=== PATIENT | male | born 1960 | race Two or more races ===

== ENCOUNTER 2018-10-15 09:18 | Inpatient (IN) | payer OTHER, MEDICAID ==
[~2018-10-15] VITALS: Ht 175.3 cm; Wt 69.9 kg
[2018-10-15] MEDS ORDERED: ONDANSETRON HCL/PF 4 MG/2 ML VIAL IVP ONE (09:30)
[2018-10-15] MEDS ORDERED: IV NS 0.9% 1,000 ML BAG IV ONE (09:30)
[2018-10-15] MEDS ORDERED: ONDANSETRON HCL/PF 4 MG/2 ML VIAL ONE (09:38)
[2018-10-15 09:41] LABS: BASOPHILS % (AUTO) 0.6 % (0.0-2.0); EOSINOPHILS % (AUTO) 0.7 % (0.0-6.0); HEMATOCRIT 44 % (39-51); LYMPHOCYTES # (AUTO) 1.2 /CMM (0.8-4.8); LYMPHOCYTES % (AUTO) 17.9 % (20.0-44.0); MEAN CORPUSCULAR HGB CONC 34 g/dl (31.0-36.0); MEAN CORPUSCULAR VOLUME 88 fL (80-96); MONOCYTES # (AUTO) 0.5 /CMM (0.1-1.30); MONOCYTES % (AUTO) 7.5 % (2.0-12.0); NEUTROPHILS # (AUTO) 4.7 /CMM (1.8-8.9); NEUTROPHILS % (AUTO) 73.3 % (43.0-81.0); PLATELET COUNT (AUTO) 251 /CMM (150-450); RED BLOOD CELL COUNT(AUTO) 4.99 MIL/uL (4.5-6.0); WHITE BLOOD COUNT (AUTO) 6.5 K/uL (4.3-11.0)
[2018-10-15 09:42] LABS: APPEARANCE,URINE Clear (CLEAR); BILIRUBIN,URINE Negative (NEGATIVE); BLOOD, URINE Negative Ery/uL (NEGATIVE); COLOR,URINE Yellow (YELLOW); KETONES,URINE Negative (NEGATIVE); LEUKOCYTE ESTERASE ,URINE Negative (NEGATIVE); NITRITE, URINE Negative (NEGATIVE); PH,URINE 7.5 (5.0-8.0); PROTEIN,URINE Negative (NEGATIVE); UGLUCOSE Negative (NEGATIVE)
--- NOTE | 2018-10-15 09:45 | NUR ---
patient came in via paramedics, c/o nausea vomiting since this morning. On room air, breathing evenly and unlabored. kept comfortable, will continue to monitor accordingly.
[2018-10-15 09:54] LABS: BACTERIA,URINE Rare /HPF (None Seen); RBC,URINE 0-3 /HPF (0-2); SQUAMOUS EPITHELIAL CELL,UR Few /HPF (None Seen)
[2018-10-15 09:57] LABS: ALANINE AMINOTRANSFERASE 41 U/L (12-78); ALBUMIN 4.4 g/dL (3.4-5.0); ALKALINE PHOSPHATASE 55 U/L (46-116); ASPARTATE AMINOTRANSFERASE 22 U/L (15-37); BILIRUBIN,DIRECT 0.2 mg/dL (0.0-0.2); BILIRUBIN,TOTAL 0.5 mg/dL (0.2-1.0); CALCIUM, SERUM 9.4 mg/dL (8.5-10.1); CARBON DIOXIDE 30 mmol/L (21-32); CHLORIDE 97 mmol/L (98-107); CREATININE 1.1 mg/dL (0.6-1.3); GLUCOSE 157 mg/dL (74-106); LIPASE 42 U/L (73-393); POTASSIUM 2.9 mmol/L (3.5-5.1); SODIUM SERUM 139 mmol/L (136-145); TOTAL PROTEIN, SERUM 7.9 g/dL (6.4-8.2); UREA NITROGEN, BLOOD 4 mg/dL (7-18)
[2018-10-15] MEDS ORDERED: POTASSIUM CHLORIDE 20 MEQ TAB.PRT.SR PO ONE ×2 (10:15→10:30)
--- NOTE | 2018-10-15 11:35 | NUR ---
Report given to Nel GANNON for leandro.
--- NOTE | 2018-10-15 12:25 | NUR ---
Patient refused transfer to [facility] facility
--- NOTE | 2018-10-15 12:30 | NUR ---
Transferred patient via wheelchair accompanied by RN and emt in no apparent distress noted. Nel RN at bedside to assume care.
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
--- NOTE | 2018-10-15 13:30 | NUR ---
REPORTS ABDOMINAL PAIN RATED A 7/10, DOES NOT RADIATE ANYWHERE, THE PAIN COMES AND GOES, PT STATES THE PAIN IS ALLEVIATED AFTER VOMITING, DESCRIBES THE PAIN DULL. PT REPORTS HE CONTINUES TO FEEL NAUSEA AND HAS VOMITED IN THE BATHROOM 4 TIMES, BILE COLORED VOMIT.
--- NOTE | 2018-10-15 13:35 | NUR ---
CALLED [facility], SPOKE WITH DR. WOODS REQUESTING A ZOFRAN ORDER. RECEIVED TELEPHONE ORDER FOR ZOFRAN 4MG IV ONCE. DR WOODS SAID HE WOULD PUT IN THE ADMITTING ORDERS SHORTLY.
--- NOTE | 2018-10-15 13:40 | NUR ---
PHOTO TAKEN OF BRUISE, PLACED IN PATIENT'S CHART
[2018-10-15] MEDS ORDERED: ONDANSETRON HCL/PF 4 MG/2 ML VIAL IV PRN (14:00)
[2018-10-15] MEDS ORDERED: ONDANSETRON HCL/PF 4 MG/2 ML VIAL IVP PRN (15:00)
[2018-10-15] MEDS ORDERED: Z GUARD REMEDY 2 OZ OINT TP PRN (15:00)
[2018-10-15] MEDS ORDERED: ACETAMINOPHEN 325 MG TABLET PO PRN (15:00)
[2018-10-15] MEDS ORDERED: MORPHINE SULFATE INJ 4 MG/ML DISP.SYRIN IV PRN (15:00)
--- NOTE | 2018-10-15 15:30 | NUR ---
OBSERVED PT PACING IN ROOM, UNABLE TO SIT STILL. REPORTS HIGH ANXIETY LEVELS. DR WOOSD NOTIFIED.
[2018-10-15] MEDS: FAMOTIDINE (20 MG) 20 MG TABLET PO SCH ×2 (15:40→21:02)
[2018-10-15] MEDS: IV NS 0.9% 1,000 ML IV PRN (15:53)
[2018-10-15 16:00] VITALS: BP 145/60
[2018-10-15] MEDS: LORAZEPAM 0.5 MG TABLET PO PRN (16:11)
[2018-10-15] MEDS: SUCRALFATE 1 G/10 ML UDC PO SCH (17:47)
--- NOTE | 2018-10-15 19:03 | NUR ---
MS RN CLOSING NOTE PT ALERT AND ORIENTED X 4 IN BED, ANXIOUS, REPORTS HIS NAUSEA HAS IMPROVED, IS NOT VOMITING ANY MORE, REPORTS HIS ABDOMINAL PAIN HAS DECREASED TO 4/10. PT ON ROOM AIR, TOLERATING WELL, RESPIRATIONS EASY, UNLABORED, NO SIGNS OF RESPIRATORY DISTRESS NOTED. PROVIDED SAFETY AND COMFORT TO PATIENT THROUGHOUT SHIFT. BED IN LOW POSITION, LOCKED, CALL LIGHT WITHIN REACH. RIGHT AC G18 UNFISNG NS 125ML/HR. SITE IS PATENT. WILL ENDORSE TO NOC SHIFT NURSE.
--- NOTE | 2018-10-15 19:15 | NUR ---
PT REMOVED HIS IV FROM RIGHT AC.
--- NOTE | 2018-10-15 19:40 | NUR ---
MS RN NOTE: PATIENT RESTING IN BED, NO ACUTE DISTRESS NOTED. BREATHING EVEN AND UNLABORED, NO SOB NOTED. IV LINE PULLED OUT, NO BLEEDING NOTED. WILL TRY TO START A NEW IV LATER. NO NAUSEA/VOMITING AT THIS TIME. BED LOCK AND IN LOWEST POSITION, CALL LIGHT IN REACH. WILL CONTINUE TO MONITOR.
[2018-10-15 20:00] VITALS: BP 159/88
[2018-10-15] MEDS: ZOLPIDEM TARTRATE 5 MG TABLET PO PRN (21:02)
--- NOTE | 2018-10-15 21:30 | NUR ---
MS RN NOTE: NEW IV STARTED TO LFA #22 WITH GOOD BLOOD RETURN, IV FLUIDS RECONNECTED. PATIENT REQUEST FOR SLEEPING MEDICATIONS. AMBIEN 5MG 1 TAB ORAL GIVEN PER MD ORDER. WILL CONTINUE TO MONITOR.
[2018-10-16] MEDS: LORAZEPAM 0.5 MG TABLET PO PRN (01:30)
--- NOTE | 2018-10-16 01:45 | NUR ---
MS RN NOTE: PATIENT REQUESTING FOR ANXIETY MEDICATION, ATIVAN 0.5MG 1 TAB ORAL GIVEN PER MD ORDER, WILL CONTINUE TO MONITOR.
[2018-10-16 04:00] VITALS: BP 133/84
[2018-10-16] MEDS: IV NS 0.9% 1,000 ML IV PRN ×2 (04:22→16:06)
--- NOTE | 2018-10-16 06:10 | NUR ---
MS RN NOTE: PATIENT RESTING IN BED, NO ACUTE DISTRESS NOTED. BREATHING EVEN AND UNLABORED, NO SOB NOTED. IV TO LFA IN PLACE, INFUSING NS AT 125ML/HR. NO NAUSEA/VOMITING AT THIS TIME. BED LOCK AND IN LOWEST POSITION, CALL LIGHT IN REACH. WILL ENDORSE TO DAY NURSE TO CONTINUE WITH PLAN OF CARE.
[2018-10-16 06:35] LABS: BASOPHILS % (AUTO) 0.8 % (0.0-2.0); EOSINOPHILS % (AUTO) 0.9 % (0.0-6.0); HEMATOCRIT 40 % (39-51); HEMOGLOBIN 13.7 g/dL (13.5-17.5); LYMPHOCYTES # (AUTO) 1.6 /CMM (0.8-4.8); MEAN CORPUSCULAR HGB CONC 34 g/dl (31.0-36.0); MEAN CORPUSCULAR VOLUME 87 fL (80-96); MONOCYTES # (AUTO) 0.5 /CMM (0.1-1.30); MONOCYTES % (AUTO) 8.5 % (2.0-12.0); NEUTROPHILS # (AUTO) 3.3 /CMM (1.8-8.9); NEUTROPHILS % (AUTO) 60.8 % (43.0-81.0); PLATELET COUNT (AUTO) 230 /CMM (150-450); WHITE BLOOD COUNT (AUTO) 5.4 K/uL (4.3-11.0)
[2018-10-16 06:36] LABS: ALBUMIN 3.7 g/dL (3.4-5.0); BILIRUBIN,TOTAL 0.7 mg/dL (0.2-1.0); CREATININE 0.8 mg/dL (0.6-1.3); MAGNESIUM 1.9 mg/dL (1.8-2.4); PHOSPHORUS 3.7 mg/dL (2.5-4.9); POTASSIUM 3.7 mmol/L (3.5-5.1); TOTAL PROTEIN, SERUM 6.8 g/dL (6.4-8.2)
[2018-10-16] MEDS: SUCRALFATE 1 G/10 ML UDC PO SCH ×3 (06:36→16:42)
[2018-10-16 06:54] LABS: THYROID STIMULATING HORMONE 0.657 uIU/mL (0.358-3.74)
[2018-10-16 08:00] VITALS: BP_SYST 121; BP_SYST 128; BP_DIAS 72; BP_DIAS 81
--- NOTE | 2018-10-16 08:00 | NUR ---
MS1/RN AM SHIFT INITIAL NOTES RECEIVED PT AWAKE SITTING IN BED, PT A/O X 4, DENIES ANY SYMPTOMS AT THIS TIME. NO ACUTE CHANGE OF CONDITION NOTED. ON ROOM AIR SATURATING @ 97%, RESPIRATIONS EVEN & UNLABORED. WITH ON GOING IV INFUSION OF NS @ 125CC/HR, IV SITE PATENT WITH NO S/S OF INFECTION. SCHEDULED AM MEDS TO BE GIVEN. CL WITHIN REACHED AND SAFETY MAINTAINED. ON GOING MONITORING.
[2018-10-16] MEDS ORDERED: GLIP10TA21 PO (08:42)
[2018-10-16] MEDS ORDERED: TRAM50TA2 PO (08:42)
[2018-10-16] MEDS ORDERED: LANS30CA62 PO (08:42)
[2018-10-16] MEDS ORDERED: METO-295 PO (08:42)
[2018-10-16] MEDS ORDERED: LORA0.5T PO (08:42)
[2018-10-16] MEDS ORDERED: SITA1TAB6 PO (08:42)
[2018-10-16] MEDS ORDERED: ONDA4TAB5 PO (08:42)
[2018-10-16] MEDS: FAMOTIDINE (20 MG) 20 MG TABLET PO SCH (08:59)
[2018-10-16] MEDS ORDERED: MENTHOL/CETYLPYRD (CEPACOL) 1 LOZ LOZENGE PO PRN (10:00)
--- NOTE | 2018-10-16 10:00 | NUR ---
MS1/RN CONSENT - NM GASTRIC STUDY CONSENT OBTAINED FROM PATIENT FOR THE GASTRIC STUDY. REEL STRIPPER HAS SPOKEN TO PT REGARDING THE PROCEDURE AND PT VERBALIZED UNDERSTANDING. PT PLACED ON NPO FOR THE SAID STUDY.
[2018-10-16] MEDS ORDERED: MORPHINE SULFATE INJ 4 MG/ML DISP.SYRIN IV PRN (11:00)
[2018-10-16] MEDS: NEXIUM 40 MG VIAL IV SCH ×2 (11:19→16:42)
--- NOTE | 2018-10-16 12:01 | NUR ---
MS1/RN OFF - GASTRIC STUDY PT LEFT MS1 UNIT VIA WHEELCHAIR IN STABLE CONDITION FOR GASTRIC STUDY.
--- NOTE | 2018-10-16 13:59 | NUR ---
MS1/RN BACK FROM GASTRIC STUDY PT RETURNED TO MS1 UNIT AFTER GASTRIC STUDY, CARE RESUMES.
[2018-10-16] MEDS: METOCLOPRAMIDE HCL 10 MG/2 ML VIAL IV SCH ×2 (14:09→20:47)
[2018-10-16 16:00] VITALS: BP 133/68
--- NOTE | 2018-10-16 19:30 | NUR ---
MS1/RN AM SHIFT END NOTES ALL NEEDS MET. NO ACUTE CHANGE OF CONDITION NOTED DURING THE SHIFT. WITH ON GOING IV INFUSION OF NS @ 75CC/HR, IV SITE PATENT WITH NO S/S OF INFECTION. PT ENDORSED TO PM NURSE TO CONTINUE CARE.
--- NOTE | 2018-10-16 19:30 | NUR ---
MS1/RN AM SHIFT INITIAL NOTES RECEIVED PATIENT IN BED AWAKE, A/O X4, DENIES ANY PAIN AT THIS TIME. ON ROOM AIR TOLERATING WELL. RESPIRATIONS EVEN & UNLABORED. IV SITE PATENT WITH NO S/S OF INFILTRATION, WITH ON GOING IV INFUSION OF NS @ 75CC/HR, ALL SAFETY MEASURES ON, BED LOCKED/LOW. CALL LIGHT WITHIN REACH. WILL CONTINUE MONITORING THE PATIENT. Addendum: 10/16/18 at 2021 by ALAINA ZUÑIGA RN MEANT TO SAY "MS RN INITIAL NOTES".
[2018-10-16 20:00] VITALS: BP 125/79
[2018-10-16] MEDS: ZOLPIDEM TARTRATE 5 MG TABLET PO PRN (20:43)
[2018-10-17] MEDS: LORAZEPAM 0.5 MG TABLET PO PRN (01:05)
[2018-10-17] MEDS: METOCLOPRAMIDE HCL 10 MG/2 ML VIAL IV SCH ×2 (02:09→08:22)
[2018-10-17 04:00] VITALS: BP 120/75
[2018-10-17 06:51] LABS: BASOPHILS % (AUTO) 0.7 % (0.0-2.0); EOSINOPHILS % (AUTO) 0.6 % (0.0-6.0); HEMATOCRIT 38 % (39-51); HEMOGLOBIN 13.2 g/dL (13.5-17.5); LYMPHOCYTES # (AUTO) 1.5 /CMM (0.8-4.8); LYMPHOCYTES % (AUTO) 29.6 % (20.0-44.0); MEAN CORPUSCULAR HGB CONC 35 g/dl (31.0-36.0); MEAN CORPUSCULAR VOLUME 86 fL (80-96); MONOCYTES # (AUTO) 0.4 /CMM (0.1-1.30); MONOCYTES % (AUTO) 7.9 % (2.0-12.0); NEUTROPHILS % (AUTO) 61.2 % (43.0-81.0); PLATELET COUNT (AUTO) 243 /CMM (150-450); WHITE BLOOD COUNT (AUTO) 4.9 K/uL (4.3-11.0)
--- NOTE | 2018-10-17 07:10 | NUR ---
MS RN CLOSING NOTES PATIENT AWAKE ALERT. ALL NEEDS MET. NO ACUTE CHANGE OF CONDITION NOTED DURING THE SHIFT. WITH ON GOING IV INFUSION OF NS @ 75CC/HR, IV SITE PATENT WITH NO S/S OF INFILTRATION. ROOM AIR, TOLERATING WELL. PT ENDORSED TO AM NURSE FOR AGNIESZKA.
[2018-10-17 07:17] LABS: CALCIUM, SERUM 8.7 mg/dL (8.5-10.1); CREATININE 0.9 mg/dL (0.6-1.3); POTASSIUM 3.3 mmol/L (3.5-5.1)
--- NOTE | 2018-10-17 07:44 | NUR ---
MS RN INITIAL NOTES RECEIVED PT AWAKE AMBULATING IN THE HALLWAY, A/O X 4. NO SIGN OF RESPIRATORY DISTRESS OR SOB NOTED. RESPIRATIONS EVEN & UNLABORED. LFA #22 NS @ 75 ML/HR, NO S/S OF INFILTRATION. SCHEDULED AM MEDS TO BE GIVEN. CALL WITHIN THE REACH AND SAFETY MAINTAINED. BED LOCKED AND AT THE LOWEST POSITION. URIBAL AT BEDSIDE. SIDE RIALS UP X2. WILL MONITOR CLOSELY.
[2018-10-17 08:00] VITALS: BP 167/86
[2018-10-17] MEDS: SUCRALFATE 1 G/10 ML UDC PO SCH (08:22)
[2018-10-17] MEDS: NEXIUM 40 MG VIAL IV SCH (08:22)
[2018-10-17] MEDS: IV NS 0.9% 1,000 ML IV PRN (08:24)
--- NOTE | 2018-10-17 08:46 | NUR ---
MS RN NOTE TONY Chaparro AT BEDSIDE AND TALKED TO THE PT. POSSIBLE DISCHARGE PLAN.
--- NOTE | 2018-10-17 08:59 | NUR ---
MS RN NOTE PATIENT ASKED TO STOP NS IV INFUSION BECAUSE HE IS GOING TO DISCHARGE TODAY. CARRIED OUT.
[2018-10-17] MEDS ORDERED: POTASSIUM CHLORIDE 20 MEQ TAB.PRT.SR PO SCH (09:30)
[2018-10-17] MEDS ORDERED: SUCR1ORA6 PO (09:34)
[2018-10-17] MEDS ORDERED: METO-295 PO (09:34)
--- NOTE | 2018-10-17 10:28 | NUR ---
patient hep lock d/c,discharge instruction given,ambulatory,tap card given.
== END 2018-10-17 10:23 | disposition home or self-care (01) | DRG 74 ==
LOC: ER 09:18 → TELE1 13:45 → MEDSG1 16:03
PROVIDERS: ADMIT Nurse Practitioner Acute Care; ATTEND Nurse Practitioner Acute Care
DX: E11.43 Type 2 diabetes mellitus with diabetic autonomic (poly)neuropathy (principal); E87.6 Hypokalemia; F31.9 Bipolar disorder, unspecified; Z87.891 Personal history of nicotine dependence; K31.84 Gastroparesis; Z79.84 Long term (current) use of oral hypoglycemic drugs; E11.65 Type 2 diabetes mellitus with hyperglycemia; K29.00 Acute gastritis without bleeding
CPT/HCPCS: 36415; 71045-TC; 80048-TC; 80053-TC; 80061-TC; 80076-TC; 81000-TC; 82962-TC; 83690-TC; 83735-TC; 84100-TC; 84443-TC; 84484-TC; 85025-TC; 87081-TC; A9541; G0378; J2405; J2765; J3490; J7030

== ENCOUNTER 2018-10-18 07:21 | Emergency (ER) | payer OTHER, MEDICAID ==
[~2018-10-18] VITALS: Ht 175.3 cm; Wt 68.0 kg
[~2018-10-18 07:21] MED LIST: GLIP10TA21 PO; LANS30CA62 PO; LORA0.5T PO; METO-295 PO; ONDA4TAB5 PO; SITA1TAB6 PO; SUCR1ORA6 PO; TRAM50TA2 PO
--- NOTE | 2018-10-18 07:44 | NUR ---
PT BIB SELF FROM HOME, C/O VOMITING STARTED LAST NIGHT, PT IS AAOX3, NOT IN RESPIRATORY DISTRESS, HOOKED TO MONITOR, KEPT RESTED AND COMFORTABLE, WIIL CONTINUE TO MONITOR.
--- NOTE | 2018-10-18 07:50 | NUR ---
AT BEDSIDE FOR EVAL.
--- NOTE | 2018-10-18 07:58 | NUR ---
BOB, CASE MANAGEMENT CALLED AND LEFT CONTACT # [phone]
[2018-10-18] MEDS ORDERED: IV NS 0.9% 1,000 ML BAG IV ONE (08:00)
[2018-10-18] MEDS ORDERED: ONDANSETRON HCL/PF 4 MG/2 ML VIAL IVP ONE (08:00)
--- NOTE | 2018-10-18 08:00 | NUR ---
PT IV LINE ESTABLISHED, BLOOD DRAWNED AND SENT TO LAB.
[2018-10-18] MEDS ORDERED: ONDANSETRON HCL/PF 4 MG/2 ML VIAL ONE (08:01)
[2018-10-18 08:07] LABS: HEMOGLOBIN 14.1 g/dL (13.5-17.5); WHITE BLOOD COUNT (AUTO) 4.6 K/uL (4.3-11.0)
[2018-10-18 08:11] LABS: BASOPHILS % (AUTO) 0.6 % (0.0-2.0); EOSINOPHILS % (AUTO) 0.1 % (0.0-6.0); HEMATOCRIT 41 % (39-51); LYMPHOCYTES # (AUTO) 0.9 /CMM (0.8-4.8); LYMPHOCYTES % (AUTO) 19.1 % (20.0-44.0); MEAN CORPUSCULAR HGB CONC 35 g/dl (31.0-36.0); MEAN CORPUSCULAR VOLUME 87 fL (80-96); MONOCYTES # (AUTO) 0.3 /CMM (0.1-1.30); MONOCYTES % (AUTO) 7.1 % (2.0-12.0); NEUTROPHILS # (AUTO) 3.4 /CMM (1.8-8.9); NEUTROPHILS % (AUTO) 73.1 % (43.0-81.0); PLATELET COUNT (AUTO) 261 /CMM (150-450); RED BLOOD CELL COUNT(AUTO) 4.68 MIL/uL (4.5-6.0)
[2018-10-18 08:17] LABS: ALBUMIN 4.4 g/dL (3.4-5.0); BILIRUBIN,DIRECT 0.2 mg/dL (0.0-0.2); BILIRUBIN,TOTAL 0.6 mg/dL (0.2-1.0); CALCIUM, SERUM 9.1 mg/dL (8.5-10.1); CREATININE 1.1 mg/dL (0.6-1.3); TOTAL PROTEIN, SERUM 7.7 g/dL (6.4-8.2)
--- NOTE | 2018-10-18 08:17 | NUR ---
PT IS WHEELED TO CT SCAN VIA [facility].
[2018-10-18 08:18] LABS: POTASSIUM 2.7 mmol/L (3.5-5.1)
[2018-10-18] MEDS ORDERED: POTASSIUM CL. PREMIX PERIPHER. 100 ML ONE (08:32)
[2018-10-18] MEDS: POTASSIUM CL. PREMIX PERIPHER. 50 ML IV SCH ×2 (08:39→09:28)
--- NOTE | 2018-10-18 08:39 | NUR ---
URINAL GIVEN BUT UNABLE TO PROVIDE URINE SPECIMEN.
[2018-10-18] MEDS ORDERED: LORAZEPAM INJ 2 MG/ML VIAL IV ONE (09:00)
[2018-10-18] MEDS ORDERED: LORAZEPAM INJ 2 MG/ML VIAL ONE (09:08)
[2018-10-18 09:10] LABS: APPEARANCE,URINE Clear (CLEAR); BILIRUBIN,URINE Negative (NEGATIVE); BLOOD, URINE Negative Ery/uL (NEGATIVE); COLOR,URINE Yellow (YELLOW); KETONES,URINE Negative (NEGATIVE); LEUKOCYTE ESTERASE ,URINE Negative (NEGATIVE); NITRITE, URINE Negative (NEGATIVE); PH,URINE 8.5 (5.0-8.0); PROTEIN,URINE Negative (NEGATIVE); UGLUCOSE Negative (NEGATIVE)
[2018-10-18 09:16] LABS: BACTERIA,URINE Rare /HPF (None Seen); RBC,URINE 0-2 /HPF (0-2); SQUAMOUS EPITHELIAL CELL,UR Rare /HPF (None Seen); WBC,URINE 0-2 /HPF (0-3)
--- NOTE | 2018-10-18 10:38 | NUR ---
IV removed. Catheter intact and site benign. Pressure and 4x4 applied to site. No bleeding noted. Patient discharged to home in stable condition. Written and verbal after care instructions given. Patient verbalizes understanding of instruction.
[2018-10-18 10:41] VITALS: BP 142/81
== END 2018-10-18 10:43 | disposition home or self-care (01) ==
LOC: ER 07:22
DX: E87.6 Hypokalemia (principal); R11.10 Vomiting, unspecified; R10.33 Periumbilical pain; E11.9 Type 2 diabetes mellitus without complications; Z79.84 Long term (current) use of oral hypoglycemic drugs; Z79.899 Other long term (current) drug therapy
CPT/HCPCS: 36415; 74176; 80048; 80076; 81001; 83690; 85025; 96361; 96365; 96366; 96375; 99284; J2060; J2405; J3480; J7030; 81000-TC

== ENCOUNTER 2018-10-20 12:30 | Emergency (ER) | payer OTHER, MEDICAID ==
[~2018-10-20] VITALS: Ht 175.3 cm; Wt 68.0 kg
--- NOTE | 2018-10-20 12:39 | NUR ---
PT BIB SELF C/O ABD PAIN, NAUSEA VOMITING x 4 DAYS, PT IS AAOX4, NOT IN RESPIRATORY DISTRESS, HOOKED TO MONITOR, KEPT RESTED AND COMFORTABLE, WILL CONTINUE TO MONITOR.
--- NOTE | 2018-10-20 12:44 | NUR ---
PT SEEN AND EXAMINED BY .
--- NOTE | 2018-10-20 12:48 | NUR ---
IV LINE ESTABLISHED, BLOOD DRAWNED AND SENT TO LAB.
[2018-10-20] MEDS ORDERED: LORAZEPAM INJ 2 MG/ML VIAL ONE (12:50)
[2018-10-20 12:52] LABS: BASOPHILS % (AUTO) 0.5 % (0.0-2.0); EOSINOPHILS % (AUTO) 0.2 % (0.0-6.0); HEMATOCRIT 39 % (39-51); HEMOGLOBIN 13.3 g/dL (13.5-17.5); LYMPHOCYTES # (AUTO) 1.3 /CMM (0.8-4.8); LYMPHOCYTES % (AUTO) 26.5 % (20.0-44.0); MEAN CORPUSCULAR HGB CONC 34 g/dl (31.0-36.0); MEAN CORPUSCULAR VOLUME 86 fL (80-96); MONOCYTES # (AUTO) 0.6 /CMM (0.1-1.30); MONOCYTES % (AUTO) 11.6 % (2.0-12.0); NEUTROPHILS # (AUTO) 3.1 /CMM (1.8-8.9); NEUTROPHILS % (AUTO) 61.2 % (43.0-81.0); PLATELET COUNT (AUTO) 243 /CMM (150-450); RED BLOOD CELL COUNT(AUTO) 4.49 MIL/uL (4.5-6.0); WHITE BLOOD COUNT (AUTO) 5.1 K/uL (4.3-11.0)
--- NOTE | 2018-10-20 12:55 | NUR ---
SEEN PT STUCK HIS FINGER TO HIS THROAT TO VOMIT. MD AWARE
[2018-10-20] MEDS ORDERED: IV NS 0.9% 500 ML BAG IV ONE (13:00)
[2018-10-20] MEDS ORDERED: LORAZEPAM INJ 2 MG/ML VIAL IV ONE (13:00)
[2018-10-20 13:01] LABS: CALCIUM, SERUM 9.7 mg/dL (8.5-10.1)
[2018-10-20 13:12] LABS: BILIRUBIN,DIRECT 0.2 mg/dL (0.0-0.2); BILIRUBIN,TOTAL 0.9 mg/dL (0.2-1.0); TOTAL PROTEIN, SERUM 7.1 g/dL (6.4-8.2)
[2018-10-20] MEDS ORDERED: POTASSIUM CHLORIDE 20 MEQ TAB.PRT.SR PO ONE ×2 (13:30→13:37)
[2018-10-20 14:28] LABS: ACETAMINOPHEN 17 ug/ml (10-30)
[2018-10-20 14:32] LABS: ALCOHOL, BLOOD < 3 mg/dL (0-0); SALICYLATE 1.3 mg/dL (2.8-20.0)
--- NOTE | 2018-10-20 14:40 | NUR ---
URINE SPECIMEN COLLECTED AND SENT TO ALB
[2018-10-20 16:19] VITALS: BP 131/82
[2018-11-01] MEDS ORDERED: ERYT250C68 PO (09:59)
== END 2018-10-20 16:20 | disposition home or self-care (01) ==
LOC: ER 12:31
DX: E87.6 Hypokalemia (principal); R10.84 Generalized abdominal pain; R11.2 Nausea with vomiting, unspecified; E11.9 Type 2 diabetes mellitus without complications; G89.29 Other chronic pain
CPT/HCPCS: 36415; 80048; 80076; 80305; 80307; 80329; 83690; 85025; 85730; 93005; 96361; 96374; 99284; G0480; J2060; J7040

== ENCOUNTER 2018-10-29 07:40 | Inpatient (IN) | payer OTHER, MEDICAID ==
[~2018-10-29] VITALS: Ht 175.3 cm; Wt 65.8 kg
--- NOTE | 2018-10-29 08:00 | NUR ---
patient came in to the ER c.o nasuea and vomiting, ABD pain. On room air, breathing evenly and unlabored. Ambulatory with steady gait. Will continue to monitor accordingly.
[2018-10-29 08:19] LABS: BASOPHILS % (AUTO) 0.7 % (0.0-2.0); EOSINOPHILS % (AUTO) 0.5 % (0.0-6.0); HEMATOCRIT 41 % (39-51); HEMOGLOBIN 14.1 g/dL (13.5-17.5); LYMPHOCYTES # (AUTO) 1.2 /CMM (0.8-4.8); LYMPHOCYTES % (AUTO) 24.4 % (20.0-44.0); MEAN CORPUSCULAR HGB CONC 34 g/dl (31.0-36.0); MEAN CORPUSCULAR VOLUME 88 fL (80-96); MONOCYTES # (AUTO) 0.4 /CMM (0.1-1.30); MONOCYTES % (AUTO) 8.5 % (2.0-12.0); NEUTROPHILS # (AUTO) 3.4 /CMM (1.8-8.9); NEUTROPHILS % (AUTO) 65.9 % (43.0-81.0); PLATELET COUNT (AUTO) 257 /CMM (150-450); RED BLOOD CELL COUNT(AUTO) 4.64 MIL/uL (4.5-6.0); WHITE BLOOD COUNT (AUTO) 5.1 K/uL (4.3-11.0)
[2018-10-29 08:26] LABS: CALCIUM, SERUM 9.2 mg/dL (8.5-10.1); CARBON DIOXIDE 33 mmol/L (21-32); CHLORIDE 99 mmol/L (98-107); GLUCOSE 160 mg/dL (74-106); POTASSIUM 3.1 mmol/L (3.5-5.1); SODIUM SERUM 137 mmol/L (136-145); UREA NITROGEN, BLOOD 5 mg/dL (7-18)
[2018-10-29 08:32] LABS: ACETAMINOPHEN 4 ug/ml (10-30); ALANINE AMINOTRANSFERASE 18 U/L (12-78); ALBUMIN 4.3 g/dL (3.4-5.0); ALCOHOL, BLOOD < 3 mg/dL (0-0); ALKALINE PHOSPHATASE 47 U/L (46-116); ASPARTATE AMINOTRANSFERASE 14 U/L (15-37); BILIRUBIN,DIRECT 0.2 mg/dL (0.0-0.2); BILIRUBIN,TOTAL 0.5 mg/dL (0.2-1.0); SALICYLATE 3.7 mg/dL (2.8-20.0); TOTAL PROTEIN, SERUM 7.4 g/dL (6.4-8.2)
--- NOTE | 2018-10-29 08:51 | NUR ---
urine collected and sent to lab.
[2018-10-29 08:54] LABS: APPEARANCE,URINE Clear (CLEAR); BILIRUBIN,URINE Negative (NEGATIVE); BLOOD, URINE Negative Ery/uL (NEGATIVE); COLOR,URINE Yellow (YELLOW); KETONES,URINE Negative (NEGATIVE); LEUKOCYTE ESTERASE ,URINE Negative (NEGATIVE); NITRITE, URINE Negative (NEGATIVE); PROTEIN,URINE Negative (NEGATIVE); UGLUCOSE Negative (NEGATIVE)
[2018-10-29 08:58] LABS: BACTERIA,URINE Rare /HPF (None Seen); RBC,URINE 0-2 /HPF (0-2); SQUAMOUS EPITHELIAL CELL,UR Rare /HPF (None Seen); URINE AMORPHOUS PHOSPHATES Moderate /HPF (None Seen); WBC,URINE 0-2 /HPF (0-3)
[2018-10-29] MEDS ORDERED: LORAZEPAM 1 MG TABLET PO ONE (09:00)
[2018-10-29] MEDS ORDERED: LORAZEPAM 1 MG TABLET ONE (09:05)
--- NOTE | 2018-10-29 10:14 | NUR ---
report given to Rj GANNON for leandro.
[2018-10-29] MEDS ORDERED: MAG HYDROX/AL HYDROX/SIMETH 30 ML UDC PO PRN (10:30)
[2018-10-29] MEDS ORDERED: ACETAMINOPHEN 325 MG TABLET PO PRN (10:30)
[2018-10-29] MEDS ORDERED: DEXTROSE 50%-WATER 50 ML DISP.SYRIN IV PRN (10:30)
[2018-10-29] MEDS ORDERED: ONDANSETRON HCL/PF 4 MG/2 ML VIAL IVP PRN (10:30)
[2018-10-29] MEDS ORDERED: MAGNESIUM HYDROXIDE 30 ML UDC PO PRN (10:30)
[2018-10-29] MEDS ORDERED: *INSULIN REGULAR(HUMULIN R)HUM 100 UNIT/ML VIAL SQ PRN (10:30)
[2018-10-29] MEDS ORDERED: HYDROMORPHONE INJ 2 MG/ML DISP.SYRIN IV PRN (10:30)
[2018-10-29] MEDS ORDERED: Z GUARD REMEDY 2 OZ OINT TP PRN (10:30)
--- NOTE | 2018-10-29 10:58 | NUR ---
Wheeled patient via wheelchair going to room 327. In no apparent distress noted. Rj RN at bedside to assume care.
[2018-10-29 11:10] VITALS: BP 142/84
[2018-10-29] MEDS: IV D5/0.45 NACL 1,000 ML IV PRN (11:33)
--- NOTE | 2018-10-29 11:45 | NUR ---
MS ADMITTING NOTES ADMITTED A 57 Y/O MALE TO UNIT VIA WHEELCHAIR AT 1100 ACCOMPANIED BY Cat LAKHANI AND PT'S GIRLFRIEND. PT IS A/O X4. VERBALLY RESPONSIVE AND AMBULATORY WITH STEADY GAIT. PT WITH DIAGNOSIS OF ABDOMINAL PAIN WITH N & V. PT ON ROOM AIR, BREATHING EVEN AND UNLABORED, NO ACUTE RESPIRATORY DISTRESS NOTED. PT STILL WITH COMPLAIN OF ABDOMINAL PAIN, WILL ADMINISTER PRN PAIN MED ORDERED. PT ORIENTED TO UNIT, ROOM AND STAFF. V/S TAKEN AN RECORDED. SKIN IS INTACT. PT WITH IV ACCESS ON RAC G #18 INTACT AND PATENT, IVF OF D5 1/2 NS @ 100ML/HR STARTED, NO S/S OF INFILTRATIONS NOTED. SAFETY MEASURES INITIATED: BED PLACED IN LOW LOCKED POSITION WITH SIDE-RAILS UP X2. CALL LIGHT PLACED WITHIN EASY REACH OF PT. WILL CONTINUE TO MONITOR PT ACCORDINGLY.
[2018-10-29 12:00] VITALS: BP 142/83
[2018-10-29] MEDS: BLOOD SUGAR DIAGNOSTIC 1 EACH STRIP VI SCH ×3 (12:26→21:10)
[2018-10-29] MEDS: METOCLOPRAMIDE HCL 10 MG/2 ML VIAL IV SCH ×2 (12:38→21:11)
[2018-10-29] MEDS ORDERED: POTASSIUM CHLORIDE 20 MEQ TAB.PRT.SR PO ONE (13:30)
--- NOTE | 2018-10-29 13:39 | NUR ---
RN NOTES PATIENT NOTED WITH LOW LEVEL POTASSIUM 3.1. DR PHILLIP MADE AWARE WITH ORDER TO TO GIVE K-DUR 40MEQ X1 WITH SIP OF WATER ONLY. WILL CARRY OUT ORDER.
--- NOTE | 2018-10-29 14:33 | NUR ---
RN NOTES PT SEEN AND EVALUATED BY DR BROWNLEE (GI ) WITH ORDER TO START PT ON CLEAR LIQUIDS DIET AND ADVANCE TOLERATED GRADUALLY. WILL CARRY OUT ORDER.
[2018-10-29] MEDS: HYDROCODONE/APAP 5/325MG 1 EACH TABLET PO PRN (14:52)
--- NOTE | 2018-10-29 14:54 | NUR ---
RN NOTES/PAIN MANAGEMENT PT C/O ACHING MID ABDOMINAL PAIN WITH SCALE OF 7/10. PRN NORCO 5/325MG PO GIVEN AT 1451. WILL CONTINUE TO MONITOR AND REASSESS PT.
[2018-10-29 16:10] VITALS: BP 147/91
[2018-10-29] MEDS: INSULIN REGULAR, HUMAN 100 UNIT/ML 3 ML VIAL SQ PRN ×2 (17:13→21:16)
--- NOTE | 2018-10-29 18:21 | NUR ---
RN NOTES/PAIN MANAGEMENT PT IN BED AND COMPLAINED OF ACHING ABDOMINAL PAIN WITH SCALE OF 8/10. PRN DILAUDID 1MG/0.5ML IVP ADMINISTERED AT 1818. WILL CONTINUE TO MONITOR AND REASSESS PT.
--- NOTE | 2018-10-29 18:41 | NUR ---
MS RN CLOSING NOTES PATIENT IN BED AWAKE AND WATCHING TV AT THIS TIME WITH GIRLFRIEND @ BEDSIDE. A/O X4 AND ABLE TO MAKE NEEDS KNOWN. AMBULATORY WITH STEADY GAIT. ON ROOM AIR, TOLERATING WELL WITH NO ACUTE RESPIRATORY DISTRESS NOTED. IV ACCESS ON RAC G#18 INTACT AND PATENT W/ IVF OF D5 1/2 NS @ 100ML/HR INFUSING WELL, NO S/S OF INFILTRATIONS NOTED. ALL NEEDS AND CARE ATTENDED WELL. BED IN LOW LOCKED POSITION WITH SR UP X2. CALL LIGHT WITHIN EASY REACH OF PT. WILL ENDORSE TO RETAIL GREETER NURSE FOR AGNIESZKA
--- NOTE | 2018-10-29 19:30 | NUR ---
RECEIVED PATIENT IN BED AWAKE. AO X 3, ABLE TO MAKE NEEDS KNOWN. NO ACUTE DISTRESS NOTED. DENIES ANY PAIN, NAUSEA, VOMITING AT THIS TIME. IV SITE PATENT, INTACT; IVF INFUSING ORDERED. SAFETY REMINDERS GIVEN. ON LOW BED WITH BILATERAL UPPER SIDE RAILS UP. CALL BETTS WITHIN EASY REACH. WILL CONTINUE TO MONITOR.
[2018-10-29 20:00] VITALS: BP 129/85
[2018-10-29] MEDS: ZOLPIDEM TARTRATE 5 MG TABLET PO PRN (21:15)
[2018-10-30] MEDS: IV D5/0.45 NACL 1,000 ML IV PRN ×2 (04:08→20:22)
[2018-10-30] MEDS: METOCLOPRAMIDE HCL 10 MG/2 ML VIAL IV SCH ×3 (05:26→21:06)
--- NOTE | 2018-10-30 06:00 | NUR ---
PATIENT ASLEEP, EASILY AROUSABLE. RESPIRATIONS EVEN. NO SIGNS OF PAIN NOTED. NO SYMPTOMS OF HYPER/HYPOGLYCEMIA. DUE MEDS GIVEN WITH NO ASE NOTED. NEEDS ATTENDED. SAFETY PRECAUTIONS AND COMFORT MEASURES IN PLACE. WILL GIVE REPORT TO DAY SHIFT FOR CONTINUITY OF CARE. SITTER AT BEDSIDE. Addendum: 10/30/18 at 0623 by NGOC JUNIOR RN CORRECTION: NO SITTER AT BEDSIDE
[2018-10-30] MEDS: BLOOD SUGAR DIAGNOSTIC 1 EACH STRIP VI SCH ×4 (06:43→21:06)
--- NOTE | 2018-10-30 07:36 | NUR ---
MS RN OPENING NOTES RECEIVED PT LAYING IN BED WITH HOB ELEVATED. PT IS A/O X3, AFEBRILE. RESPIRATIONS ARE EVEN AND UNLABORED, NOT IN ANY ACUTE DISTRESS NOTED. PT DENIES ANY PAIN AT THIS TIME, NO C/O SOB, N/V. IV SITE TO RAC 18 G INTACT, NO INFILTRATION NOTED. DRESSING KEPT CLEAN AND DRY. SAFETY MEASURES ARE IN PLACE. INSTRUCTED PT TO USE CALL LIGHT WHEN ASSISTANCE IS NEEDED, CALL LIGHT IS LEFT WITHIN REACH. WILL MONITOR THROUGHOUT SHIFT FOR CONTINUITY OF CARE.
[2018-10-30 07:40] LABS: BASOPHILS # (AUTO) 0.1 /CMM (0.0-0.2); EOSINOPHILS % (AUTO) 2.4 % (0.0-6.0); HEMATOCRIT 40 % (39-51); HEMOGLOBIN 13.6 g/dL (13.5-17.5); LYMPHOCYTES # (AUTO) 1.8 /CMM (0.8-4.8); LYMPHOCYTES % (AUTO) 34.4 % (20.0-44.0); MEAN CORPUSCULAR HGB CONC 34 g/dl (31.0-36.0); MEAN CORPUSCULAR VOLUME 88 fL (80-96); MONOCYTES # (AUTO) 0.5 /CMM (0.1-1.30); MONOCYTES % (AUTO) 9.7 % (2.0-12.0); NEUTROPHILS # (AUTO) 2.7 /CMM (1.8-8.9); NEUTROPHILS % (AUTO) 52.5 % (43.0-81.0); PLATELET COUNT (AUTO) 225 /CMM (150-450); WHITE BLOOD COUNT (AUTO) 5.2 K/uL (4.3-11.0)
[2018-10-30] MEDS: PANTOPRAZOLE 40 MG TABLET.DR PO SCH (07:48)
[2018-10-30 07:52] LABS: ALBUMIN 3.7 g/dL (3.4-5.0); BILIRUBIN,DIRECT 0.1 mg/dL (0.0-0.2); BILIRUBIN,TOTAL 0.6 mg/dL (0.2-1.0); CALCIUM, SERUM 8.9 mg/dL (8.5-10.1); CREATININE 0.8 mg/dL (0.6-1.3); MAGNESIUM 1.8 mg/dL (1.8-2.4); PHOSPHORUS 3.9 mg/dL (2.5-4.9); POTASSIUM 3.2 mmol/L (3.5-5.1); TOTAL PROTEIN, SERUM 6.6 g/dL (6.4-8.2)
[2018-10-30 08:00] VITALS: BP 140/84
[2018-10-30] MEDS ORDERED: PANTOPRAZOLE 40 MG VIAL IV SCH (09:00)
[2018-10-30] MEDS: POTASSIUM CHLORIDE 20 MEQ TAB.PRT.SR PO SCH ×2 (10:12→10:13)
--- NOTE | 2018-10-30 11:07 | NUR ---
WOUND CARE CONSULT: PT REFUSED SKIN ASSESSMENT. CURRENT ROGER SCORE IS 20. WILL SEE PRN.
[2018-10-30] MEDS: HYDROCODONE/APAP 5/325MG 1 EACH TABLET PO PRN ×2 (11:23→17:58)
[2018-10-30 16:00] VITALS: BP 122/80
--- NOTE | 2018-10-30 16:48 | NUR ---
MS RN NOTES-- BLOOD SUGAR 91. NO INSULIN GIVEN. NO S/SX OF HYPO/HYPERGLYCEMIA NOTED. WILL CONTINUE TO MONITOR.
--- NOTE | 2018-10-30 18:35 | NUR ---
MS RN CLOSING NOTES ALL DUE MEDS GIVEN. NEEDS MET AND RENDERED. PT IS A/O X4, AFEBRILE. RESPIRATIONS ARE EVEN AND UNLABORED, NOT IN ANY ACUTE DISTRESS NOTED. DENIES ANY PAIN AT THIS TIME, NO C/O SOB, N/V. IV SITE TO LFA 20G INTACT, NO INFILTRATION NOTED. DRESSING KEPT CLEAN AND DRY. SAFETY MEASURES ARE IN PLACE. WILL ENDORSE TO NEXT SHIFT FOR CONTINUITY OF CARE.
[2018-10-30] MEDS: LORAZEPAM INJ 2 MG/ML VIAL IV PRN (18:46)
[2018-10-30 20:00] VITALS: BP 141/93
[2018-10-30 20:08] VITALS: BP 141/93
--- NOTE | 2018-10-30 20:33 | NUR ---
RN NOTES RECEIVED PATIENT IN BED, ALERT AND ORIENTED X3, NO SOB, NO DISTRESS, DENIES VOMITING, RECEIVED PAIN MEDICATION FOR ABDOMINAL PAIN WITH GOOD RELIEF, IVF AT 100 ML/HR, KEPT SAFE, CALL LIGHT WITHIN REACH.
[2018-10-30] MEDS: ZOLPIDEM TARTRATE 5 MG TABLET PO PRN (21:06)
--- NOTE | 2018-10-30 22:00 | NUR ---
RN NOTES BG 111 MG/DL, NO INSULIN GIVEN
[2018-10-31] MEDS: METOCLOPRAMIDE HCL 10 MG/2 ML VIAL IV SCH ×3 (04:24→20:41)
[2018-10-31] MEDS: HYDROCODONE/APAP 5/325MG 1 EACH TABLET PO PRN ×2 (04:27→14:18)
[2018-10-31 06:09] LABS: BASOPHILS % (AUTO) 0.9 % (0.0-2.0); EOSINOPHILS % (AUTO) 2.6 % (0.0-6.0); HEMATOCRIT 41 % (39-51); HEMOGLOBIN 14.1 g/dL (13.5-17.5); LYMPHOCYTES # (AUTO) 1.2 /CMM (0.8-4.8); LYMPHOCYTES % (AUTO) 25.2 % (20.0-44.0); MEAN CORPUSCULAR HGB CONC 34 g/dl (31.0-36.0); MEAN CORPUSCULAR VOLUME 88 fL (80-96); MONOCYTES # (AUTO) 0.4 /CMM (0.1-1.30); MONOCYTES % (AUTO) 8.9 % (2.0-12.0); NEUTROPHILS # (AUTO) 2.9 /CMM (1.8-8.9); NEUTROPHILS % (AUTO) 62.4 % (43.0-81.0); PLATELET COUNT (AUTO) 224 /CMM (150-450); RED BLOOD CELL COUNT(AUTO) 4.69 MIL/uL (4.5-6.0); WHITE BLOOD COUNT (AUTO) 4.7 K/uL (4.3-11.0)
[2018-10-31 06:27] LABS: CALCIUM, SERUM 9.1 mg/dL (8.5-10.1); CREATININE 0.8 mg/dL (0.6-1.3); MAGNESIUM 1.9 mg/dL (1.8-2.4); PHOSPHORUS 3.4 mg/dL (2.5-4.9); POTASSIUM 3.3 mmol/L (3.5-5.1)
[2018-10-31] MEDS: IV D5/0.45 NACL 1,000 ML IV PRN (06:38)
[2018-10-31] MEDS: BLOOD SUGAR DIAGNOSTIC 1 EACH STRIP VI SCH ×4 (06:39→22:00)
[2018-10-31] MEDS: INSULIN REGULAR, HUMAN 100 UNIT/ML 3 ML VIAL SQ PRN (06:39)
--- NOTE | 2018-10-31 06:40 | NUR ---
RN NOTES BG 122, NO INSULIN COVERAGE
--- NOTE | 2018-10-31 06:41 | NUR ---
RN NOTES PATIENT IS ALERT AND ORIENTED X4, WITH EPISODE OF ANXIETY, NO VOMITING DURING SHIFT, ABDOMINAL DISCOMFORT, GIVEN NORCO X1, GIVEN AMBIEN, SLEPT FOR 4 HOURS, ACCUCHECK SCHEDULED, BG THIS AM 122, NO INSULIN COVERAGE, PER POC, CONTINUE IVF, FOR GASTRITIS, PAIN CONTROL AND REGLAN, FOR ANXIETY, ATIVAN.
[2018-10-31] MEDS: PANTOPRAZOLE 40 MG TABLET.DR PO SCH (08:14)
[2018-10-31 08:31] VITALS: BP 132/80
[2018-10-31] MEDS ORDERED: POTASSIUM CHLORIDE 20 MEQ TAB.PRT.SR PO SCH (09:30)
[2018-10-31 16:00] VITALS: BP 130/82
[2018-10-31] MEDS: ERYTHROMYCIN BASE (250 MG) 250 MG CAPSULE.DR PO SCH (18:30)
--- NOTE | 2018-10-31 19:30 | NUR ---
MS RN OPENING NOTE RECEIVED PATIENT IN BED. A/OX3. TOLERATING ROOM AIR. RESPIRATIONS ARE EVEN AND UNLABORED. NO SIGNS OF SOB NOTED. DENIES PAIN AT THIS TIME. IV ACCESS IN RFA GAUGE 20 PATENT AND SALINE LOCKED. PATIENT IS REFUSING IVF AT THIS TIME. NO APPARENT DISTRESS AT THIS TIME. BED IS LOW AND LOCKED, SIDE RAILS UPX2. CALL LIGHT WITHIN REACH. FAMILY AT THE BEDSIDE. WILL CONTINUE TO MONITOR.
[2018-10-31 20:00] VITALS: BP 127/82
[2018-10-31] MEDS: ZOLPIDEM TARTRATE 5 MG TABLET PO PRN (20:41)
[2018-10-31] MEDS: LORAZEPAM INJ 2 MG/ML VIAL IV PRN (20:41)
--- NOTE | 2018-10-31 20:45 | NUR ---
MS RN NOTE 2040 ADMINISTERED PRN AMBIEN 5MG FOR ANXIETY PER PATIENTS REQUEST. ADMINISTERED PRN ATIVAN 1MG FOR SLEEP PER PATIENTS REQUEST. WAIST WITNESSED BY CHINO GANNON.
--- NOTE | 2018-10-31 21:25 | NUR ---
MS RN NOTE 2200 ACCUCHECK READS A BLOOD SUGAR OF 139. PATIENT REFUSED 2 UNITS OF INSULIN.
[2018-10-31] MEDS: DOCUSATE SODIUM 100 MG CAPSULE PO SCH (22:30)
[2018-10-31] MEDS: SENNOSIDES/DOCUSATE SODIUM 1 TAB TABLET PO SCH (22:30)
[2018-11-01] MEDS: METOCLOPRAMIDE HCL 10 MG/2 ML VIAL IV SCH ×2 (05:41→12:28)
[2018-11-01] MEDS: ERYTHROMYCIN BASE (250 MG) 250 MG CAPSULE.DR PO SCH ×2 (05:41→12:29)
--- NOTE | 2018-11-01 06:12 | NUR ---
MS RN NOTE PATIENT REFUSED TO HAVE IVF CONNECTED DURING SHIFT. ONLY ALLOWED TO BE CONNECTED 3 HOURS DURING SHIFT. 0300 - 0600. PATIENT IS REFUSING IVF NOW. EXPLAINED RISK AND BENEFITS AND PATIENT STILL REFUSED. WILL ENDORSE TO NEXT SHIFT.
--- NOTE | 2018-11-01 06:32 | NUR ---
MS RN CLOSING NOTE PATIENT IS RESTING IN BED. A/OX3. TOLERATING ROOM AIR. RESPIRATIONS ARE EVEN AND UNLABORED. NO SIGNS OF SOB NOTED THROUGHOUT SHIFT. NO COMPLAINTS OF PAIN THROUGHOUT SHIFT. IV ACCESS MAINTAINED IN RFA GAUGE 20 RUNNING D5 1/2NS@100ML/HR. NO DISTRESS NOTED THROUGHOUT SHIFT. BED IS LOW AND LOCKED, SIDE RAILS UPX2. CALL LIGHT WITHIN REACH. WILL ENDORSE TO NEXT SHIFT FOR AGNIESZKA.
--- NOTE | 2018-11-01 06:53 | NUR ---
MS RN NOTE 5542 ACCUCHECK READ BS 99. NO INSULIN GIVEN BECAUSE WITHIN NORMAL RANGE
[2018-11-01 07:08] LABS: BASOPHILS % (AUTO) 0.9 % (0.0-2.0); EOSINOPHILS % (AUTO) 2.9 % (0.0-6.0); HEMATOCRIT 41 % (39-51); LYMPHOCYTES # (AUTO) 1.3 /CMM (0.8-4.8); LYMPHOCYTES % (AUTO) 27.6 % (20.0-44.0); MEAN CORPUSCULAR HGB CONC 34 g/dl (31.0-36.0); MEAN CORPUSCULAR VOLUME 88 fL (80-96); MONOCYTES # (AUTO) 0.4 /CMM (0.1-1.30); MONOCYTES % (AUTO) 9.4 % (2.0-12.0); NEUTROPHILS # (AUTO) 2.7 /CMM (1.8-8.9); NEUTROPHILS % (AUTO) 59.2 % (43.0-81.0); PLATELET COUNT (AUTO) 231 /CMM (150-450); RED BLOOD CELL COUNT(AUTO) 4.66 MIL/uL (4.5-6.0); WHITE BLOOD COUNT (AUTO) 4.6 K/uL (4.3-11.0)
--- NOTE | 2018-11-01 07:20 | NUR ---
MS RN OPENING NOTE RECEIVED PT IN BED, ALERT AND ORIENTED X4, DENIES CHEST PAIN, N/V, BREATHING IS EVEN AND UNLABORED ON ROOM AIR. NO ACUTE DISTRESS NOTED AT THIS TIME. RIGHT FA #18G IS SALINE LOCKED WITHOUT REDNESS OR SWELLING, PT IS REFUSING IV FLUIDS AT THIS TIME BUT STATES HE IS DRINKING WATER. ALL NEEDS ATTENDED TO. BED IS LOCKED AND IN LOWEST POSITION, SIDE RAILS UP X2, BED ALARM ON, CALL LIGHT AND POSSESSIONS WITHIN REACH.
[2018-11-01 07:23] LABS: CALCIUM, SERUM 8.5 mg/dL (8.5-10.1); CREATININE 0.8 mg/dL (0.6-1.3); PHOSPHORUS 3.6 mg/dL (2.5-4.9); POTASSIUM 3.5 mmol/L (3.5-5.1)
[2018-11-01] MEDS: BLOOD SUGAR DIAGNOSTIC 1 EACH STRIP VI SCH ×2 (07:39→11:30)
--- NOTE | 2018-11-01 07:56 | NUR ---
MS RN NOTE FACE SHEET FAXED TO [employer] FOR CONSULT ORDERED. PER [employer] CONSULTING PSYCH PHYSICIAN IS TODAY.
[2018-11-01 08:00] VITALS: BP 132/88
[2018-11-01] MEDS: SENNOSIDES/DOCUSATE SODIUM 1 TAB TABLET PO SCH (08:56)
[2018-11-01] MEDS: DOCUSATE SODIUM 100 MG CAPSULE PO SCH ×2 (08:56→12:28)
[2018-11-01] MEDS: PANTOPRAZOLE 40 MG TABLET.DR PO SCH (08:56)
--- NOTE | 2018-11-01 09:45 | NUR ---
MS RN NOTE PER PRIMARY HOSPITALIST ESTEBAN MATHEWS, YOLY NO NEED FOR PSYCH CONSULT PRIOR TO D/C
[2018-11-01] MEDS ORDERED: ERYT250C68 PO (09:59)
[2018-11-01] MEDS: INSULIN REGULAR, HUMAN 100 UNIT/ML 3 ML VIAL SQ PRN (12:33)
--- NOTE | 2018-11-01 13:24 | NUR ---
MS RN NOTE SPOKE WITH RONN OVER THE PHONE, PER RONN SHE IS ABLE TO PICK THE PATIENT UP AFTER WORK AROUND 5:30P.M TODAY, PER RONN IF THE PT WOULD LIKE TO TAKE THE BUS HOME INSTEAD THAT IS OKAY, SOMEONE WILL BE AT HER HOME IN [place] TO LET THE PATIENT INSIDE. PT IN SHOWER NOW, WILL DISCUSS OPTIONS WITH PATIENT AND INFORM RONN OF PT DECISION
--- NOTE | 2018-11-01 14:00 | NUR ---
MS RN NOTE SPOKE WITH RONN OVER THE PHONE, INFORMED THAT PT DOES NOT WANT TO WAIT UNTIL 5:30 FOR HER TO PICK HIM UP. INFORMED THAT THE NURSE WILL PROVIDE TAP CARD. STATED OKAY WITH HER TO HAVE PT TAKE THE BUS HOME/
--- NOTE | 2018-11-01 14:07 | NUR ---
MS SEMICONDUCTOR WAFERS SAW OPERATOR NOTE PT DISCHARGE HOME VIA BUS, PROVIDED WITH TAP CARD FROM NURSING GROUP DIRECTOR IN MEDICALLY STABLE CONDITION. PT IS ALERT AND ORIENTED X4, DENIES CHEST PAIN, SOB, N/V, BREATHING IS EVEN AND UNLABORED ON ROOM AIR. NO ACUTE DISTRESS NOTED AT THIS TIME. RIGHT FA PERIPHERAL IV REMOVED WITH CATHETER TIP INTACT. DISCHARGE PAPERWORK AND EDUCATION PROVIDED PER PROTOCOL INCLUDING D/C RECOMMENDATIONS TO FOLLOW UP WITH PCP WITHIN 1 WEEK AND TO TAKE MEDICATIONS PRESCRIBED, PROVIDED WITH PRESCRIPTION IN DISCHARGE PACKET. INFORMED PT TO CALL 911 OR RETURN TO THE NEAREST ER FOR CHEST PAIN, SOB, BLOOD IN THE EMESIS, STOOL, URINE, UNILATERAL CALF SWELLING, ELEVATED TEMPERATURE, PT VERBALIZED UNDERSTANDING AND AGREEMENT. RONN AWARE OF DISCHARGE VIA BUS TO HOME IN [place], VERIFIED ADDRESS WITH PATIENT AND RONN. ALL BELONGINGS ACCOUNTED FOR AND LIST SIGNED AND PLACED IN CHART. THE NURSE ACCOMPANIED THE PT TO THE MAIN LOBBY WITHOUT INCIDENT.
== END 2018-11-01 13:50 | disposition home or self-care (01) | DRG 74 ==
LOC: ER 07:43 → MED 10:22
PROVIDERS: ADMIT Internal Medicine; ATTEND Nurse Practitioner Acute Care
DX: E11.43 Type 2 diabetes mellitus with diabetic autonomic (poly)neuropathy (principal); K31.84 Gastroparesis; K21.9 Gastro-esophageal reflux disease without esophagitis; R10.9 Unspecified abdominal pain; E87.6 Hypokalemia; F32.9 Major depressive disorder, single episode, unspecified; F41.9 Anxiety disorder, unspecified; Z79.84 Long term (current) use of oral hypoglycemic drugs; Z87.891 Personal history of nicotine dependence
CPT/HCPCS: 36415; 74018; 80048-TC; 80076-TC; 80305; 81000-TC; 82962-TC; 83690-TC; 83735-TC; 84100-TC; 85025-TC; 87081-TC; C9113; G0378; G0480; J1170; J1815; J2060; J2765; J3490

== ENCOUNTER 2018-12-07 10:09 | Emergency (ER) | payer OTHER, MEDICAID ==
[~2018-12-07] VITALS: Ht 175.3 cm; Wt 69.9 kg
[~2018-12-07 10:09] MED LIST changes: +ERYT250C68 PO; -LANS30CA62 PO; -ONDA4TAB5 PO; -SUCR1ORA6 PO
[2018-12-07] MEDS ORDERED: MAG HYDROX/AL HYDROX/SIMETH 30 ML UDC ONE (10:58)
[2018-12-07 10:59] LABS: BASOPHILS # (AUTO) 0.1 /CMM (0.0-0.2); BASOPHILS % (AUTO) 1.1 % (0.0-2.0); EOSINOPHILS % (AUTO) 1.6 % (0.0-6.0); HEMATOCRIT 41 % (39-51); HEMOGLOBIN 14.2 g/dL (13.5-17.5); LYMPHOCYTES # (AUTO) 1.6 /CMM (0.8-4.8); LYMPHOCYTES % (AUTO) 31.5 % (20.0-44.0); MEAN CORPUSCULAR HGB CONC 35 g/dl (31.0-36.0); MEAN CORPUSCULAR VOLUME 87 fL (80-96); MONOCYTES # (AUTO) 0.6 /CMM (0.1-1.30); MONOCYTES % (AUTO) 10.7 % (2.0-12.0); NEUTROPHILS # (AUTO) 2.9 /CMM (1.8-8.9); NEUTROPHILS % (AUTO) 55.1 % (43.0-81.0); PLATELET COUNT (AUTO) 273 /CMM (150-450); RED BLOOD CELL COUNT(AUTO) 4.67 MIL/uL (4.5-6.0); WHITE BLOOD COUNT (AUTO) 5.2 K/uL (4.3-11.0)
[2018-12-07] MEDS ORDERED: FAMOTIDINE/PF INJ 20 MG/2 ML VIAL IV ONE ×2 (10:59→11:00)
[2018-12-07] MEDS ORDERED: ONDANSETRON HCL/PF 4 MG/2 ML VIAL ONE (10:59)
[2018-12-07] MEDS ORDERED: LIDOCAINE VISCOUS 2% UD 15 ML UDC ONE (10:59)
[2018-12-07] MEDS ORDERED: ONDANSETRON HCL/PF - ER 4 MG/2 ML VIAL IV ONE (11:00)
[2018-12-07] MEDS ORDERED: LIDOCAINE VISCOUS 2% UD 15 ML UDC MM ONE (11:00)
[2018-12-07] MEDS ORDERED: MAG HYDROX/AL HYDROX/SIMETH 30 ML UDC PO ONE (11:00)
[2018-12-07] MEDS ORDERED: IV NS 0.9% 1,000 ML BAG IV ONE (11:00)
[2018-12-07 11:05] LABS: CALCIUM, SERUM 9.7 mg/dL (8.5-10.1); CARBON DIOXIDE 31 mmol/L (21-32); CHLORIDE 96 mmol/L (98-107); GLUCOSE 144 mg/dL (74-106); POTASSIUM 2.9 mmol/L (3.5-5.1); SODIUM SERUM 136 mmol/L (136-145); UREA NITROGEN, BLOOD 14 mg/dL (7-18)
[2018-12-07 11:10] LABS: ALANINE AMINOTRANSFERASE 16 U/L (12-78); ALBUMIN 4.3 g/dL (3.4-5.0); ALKALINE PHOSPHATASE 53 U/L (46-116); ASPARTATE AMINOTRANSFERASE 11 U/L (15-37); BILIRUBIN,DIRECT 0.1 mg/dL (0.0-0.2); BILIRUBIN,TOTAL 0.5 mg/dL (0.2-1.0); LIPASE 36 U/L (73-393); TOTAL PROTEIN, SERUM 7.9 g/dL (6.4-8.2)
[2018-12-07 11:44] LABS: APPEARANCE,URINE Slightly Cloudy (CLEAR); BILIRUBIN,URINE Negative (NEGATIVE); BLOOD, URINE Negative Ery/uL (NEGATIVE); COLOR,URINE Yellow (YELLOW); KETONES,URINE Negative (NEGATIVE); LEUKOCYTE ESTERASE ,URINE Negative (NEGATIVE); NITRITE, URINE Negative (NEGATIVE); PH,URINE 8.5 (5.0-8.0); PROTEIN,URINE Negative (NEGATIVE); UGLUCOSE Negative (NEGATIVE)
[2018-12-07 11:55] LABS: BACTERIA,URINE Few /HPF (None Seen); RBC,URINE NONE SEEN /HPF (0-2); SQUAMOUS EPITHELIAL CELL,UR Rare /HPF (None Seen); URINE AMORPHOUS PHOSPHATES Moderate /HPF (None Seen); WBC,URINE 0-2 /HPF (0-3)
[2018-12-07] MEDS ORDERED: POTASSIUM CHLORIDE 20 MEQ TAB.PRT.SR PO ONE ×2 (12:30→12:39)
[2018-12-07] MEDS ORDERED: HYDROCODONE/APAP 5/325MG 1 EACH TABLET PO ONE (12:30)
[2018-12-07] MEDS ORDERED: POTASSIUM CL. PREMIX PERIPHER. 50 ML IV SCH (12:30)
[2018-12-07] MEDS ORDERED: POTASSIUM CL. PREMIX PERIPHER. 50 ML ONE (12:38)
[2018-12-07] MEDS ORDERED: HYDROCODONE/APAP 5/325MG 1 EACH TABLET ONE (12:39)
--- NOTE | 2018-12-07 13:00 | NUR ---
Pt updated with plan of care given sips of clears. No nausea/vomiting
--- NOTE | 2018-12-07 14:08 | NUR ---
IV removed. Catheter intact and site benign. Pressure and 4x4 applied to site. No bleeding noted.
--- NOTE | 2018-12-07 14:08 | NUR ---
Patient discharged to home in stable condition. Written and verbal after care instructions given. Patient verbalizes understanding of instruction.
[2018-12-07 14:09] VITALS: BP 105/68
== END 2018-12-07 14:10 | disposition home or self-care (01) ==
LOC: ER 10:15
DX: K29.70 Gastritis, unspecified, without bleeding (principal); E87.6 Hypokalemia; R07.89 Other chest pain; E11.9 Type 2 diabetes mellitus without complications; R11.2 Nausea with vomiting, unspecified; R00.0 Tachycardia, unspecified; Z90.89 Acquired absence of other organs
CPT/HCPCS: 36415; 71045; 76705; 80048; 80076; 81001; 83690; 84484; 85025; 93005; 96361; 96365; 96375; 99284; J2405; J3480; J3490; J7030; 81000-TC

== ENCOUNTER 2018-12-13 09:30 | Emergency (ER) | payer OTHER, MEDICAID ==
[~2018-12-13] VITALS: Ht 165.1 cm; Wt 67.1 kg
[2018-12-13 10:00] VITALS: BP 142/88
[2018-12-13] MEDS ORDERED: LIDOCAINE VISCOUS 2% UD 15 ML UDC MM ONE (10:00)
[2018-12-13] MEDS ORDERED: ONDANSETRON 4 MG TAB.RAPDIS SL ONE (10:00)
[2018-12-13] MEDS ORDERED: FAMOTIDINE (20 MG) 20 MG TABLET PO ONE (10:00)
[2018-12-13] MEDS ORDERED: MAG HYDROX/AL HYDROX/SIMETH 30 ML UDC PO ONE (10:00)
[2018-12-13] MEDS ORDERED: ONDANSETRON 4 MG TAB.RAPDIS ONE ×2 (10:04→10:11)
[2018-12-13] MEDS ORDERED: LIDOCAINE VISCOUS 2% UD 15 ML UDC ONE ×2 (10:04→10:10)
[2018-12-13] MEDS ORDERED: MAG HYDROX/AL HYDROX/SIMETH 30 ML UDC ONE ×2 (10:04→10:10)
[2018-12-13] MEDS ORDERED: FAMOTIDINE (20 MG) 20 MG TABLET ONE ×2 (10:04→10:10)
== END 2018-12-13 10:44 | disposition home or self-care (01) ==
LOC: ER 09:34
DX: K29.70 Gastritis, unspecified, without bleeding (principal); F10.239 Alcohol dependence with withdrawal, unspecified; E11.9 Type 2 diabetes mellitus without complications; Z90.89 Acquired absence of other organs; Z79.899 Other long term (current) drug therapy; Z79.84 Long term (current) use of oral hypoglycemic drugs; Y90.9 Presence of alcohol in blood, level not specified
CPT/HCPCS: 99284; Q0162

== ENCOUNTER 2018-12-14 20:21 | Emergency (ER) | payer OTHER, MEDICAID ==
[~2018-12-14] VITALS: Ht 175.3 cm; Wt 68.0 kg
[2018-12-14 20:52] VITALS: BP 139/100
--- NOTE | 2018-12-14 22:31 | NUR ---
PT NAME CALLED IN WAITING AREA, NO ANSWER.
--- NOTE | 2018-12-14 23:00 | NUR ---
PT NAME CALLED IN WAITING AREA, NO ANSWER.
--- NOTE | 2018-12-14 23:21 | NUR ---
PT NAME CALLED IN WAITING AREA, NO ANSWER.
== END 2018-12-14 23:23 | disposition left against medical advice (07) ==
LOC: ER 20:23
DX: Z53.21 Procedure and treatment not carried out due to patient leaving prior to being seen by health care provider (principal); R10.84 Generalized abdominal pain; E11.9 Type 2 diabetes mellitus without complications; Z90.89 Acquired absence of other organs

== ENCOUNTER 2018-12-15 05:44 | Emergency (ER) | payer OTHER, MEDICAID ==
[~2018-12-15] VITALS: Ht 175.3 cm; Wt 70.3 kg
--- NOTE | 2018-12-15 06:20 | NUR ---
BIBSELF WITH FROM HOME. TO ER BED 6. AAOX4. NO RESP DISTRESS NOTED. AMBULATORY. C/O ABDOMINAL PAIN. PT REPORTS THAT PAIN STARTED YESTERDAY. HE REPORTS TAKING BENTYL WHICH WAS PRESCRIBE FOR HIM FOR ABDOMINAL PAIN. PT REPORTS THAT THE MEDICATION IS NOT EFFECTIVE. PT IS NAUSEOUS AND VOMMITED ONCE IN UNIT. AWAITING MD FOR EVAL.
[2018-12-15] MEDS ORDERED: METOCLOPRAMIDE HCL 10 MG/2 ML VIAL ONE (06:29)
[2018-12-15] MEDS ORDERED: diphenhydrAMINE HCL 50 MG/ML VIAL ONE (06:29)
[2018-12-15] MEDS ORDERED: diphenhydrAMINE HCL 50 MG/ML VIAL IV ONE (06:30)
[2018-12-15] MEDS ORDERED: FAMOTIDINE/PF INJ 20 MG/2 ML VIAL IV ONE ×2 (06:30)
[2018-12-15] MEDS ORDERED: IV NS 0.9% 1,000 ML BAG IV ONE (06:30)
[2018-12-15] MEDS ORDERED: METOCLOPRAMIDE HCL 10 MG/2 ML VIAL IV ONE (06:30)
[2018-12-15 06:35] LABS: BASOPHILS # (AUTO) 0.1 /CMM (0.0-0.2); BASOPHILS % (AUTO) 0.9 % (0.0-2.0); EOSINOPHILS % (AUTO) 2.7 % (0.0-6.0); HEMATOCRIT 41 % (39-51); HEMOGLOBIN 14.1 g/dL (13.5-17.5); LYMPHOCYTES # (AUTO) 1.8 /CMM (0.8-4.8); LYMPHOCYTES % (AUTO) 28.2 % (20.0-44.0); MEAN CORPUSCULAR HGB CONC 34 g/dl (31.0-36.0); MEAN CORPUSCULAR VOLUME 89 fL (80-96); MONOCYTES # (AUTO) 0.8 /CMM (0.1-1.30); MONOCYTES % (AUTO) 12.2 % (2.0-12.0); NEUTROPHILS # (AUTO) 3.7 /CMM (1.8-8.9); PLATELET COUNT (AUTO) 274 /CMM (150-450); RED BLOOD CELL COUNT(AUTO) 4.64 MIL/uL (4.5-6.0); WHITE BLOOD COUNT (AUTO) 6.5 K/uL (4.3-11.0)
[2018-12-15 07:10] LABS: CALCIUM, SERUM 9.5 mg/dL (8.5-10.1); CREATININE 0.9 mg/dL (0.6-1.3); POTASSIUM 3.3 mmol/L (3.5-5.1)
[2018-12-15 07:14] LABS: ALBUMIN 4.5 g/dL (3.4-5.0); BILIRUBIN,DIRECT 0.1 mg/dL (0.0-0.2); BILIRUBIN,TOTAL 0.7 mg/dL (0.2-1.0); TOTAL PROTEIN, SERUM 8.1 g/dL (6.4-8.2)
[2018-12-15 07:44] VITALS: BP 140/89
--- NOTE | 2018-12-15 07:45 | NUR ---
Patient discharged to home in stable condition. Written and verbal after care instructions given. Patient verbalizes understanding of instruction.IV removed. Catheter intact and site benign. Pressure and 4x4 applied to site. No bleeding noted.
== END 2018-12-15 07:45 | disposition home or self-care (01) ==
LOC: ER 05:46
DX: R10.84 Generalized abdominal pain (principal); R11.2 Nausea with vomiting, unspecified; E11.9 Type 2 diabetes mellitus without complications; Z90.89 Acquired absence of other organs; Z79.84 Long term (current) use of oral hypoglycemic drugs; Z79.899 Other long term (current) drug therapy
CPT/HCPCS: 36415; 80048; 80076; 83690; 85025; 96361; 96374; 96375; 99283; A4216; J1200; J2765; J3490; J7030

== ENCOUNTER 2019-01-12 08:48 | Emergency (ER) | payer OTHER, MEDICAID ==
[~2019-01-12] VITALS: Ht 175.3 cm; Wt 64.4 kg
--- NOTE | 2019-01-12 09:00 | NUR ---
C/O NAUSEA AND VOMITING STARTED LAST NIGHT. A/OX4, BREATHING EVEN AND UNLABORED. NO SIOB NOTED. CHANGED INTO GOWN, ATTACHED TO THE MONITOR.
[2019-01-12] MEDS ORDERED: ONDANSETRON HCL/PF 4 MG/2 ML VIAL ONE (09:10)
[2019-01-12] MEDS ORDERED: PANTOPRAZOLE 40 MG VIAL ONE (09:10)
[2019-01-12 09:26] LABS: BASOPHILS # (AUTO) 0.1 /CMM (0.0-0.2); BASOPHILS % (AUTO) 0.8 % (0.0-2.0); EOSINOPHILS % (AUTO) 0.9 % (0.0-6.0); HEMATOCRIT 41 % (39-51); HEMOGLOBIN 14.1 g/dL (13.5-17.5); LYMPHOCYTES # (AUTO) 1.4 /CMM (0.8-4.8); LYMPHOCYTES % (AUTO) 20.2 % (20.0-44.0); MEAN CORPUSCULAR HGB CONC 34 g/dl (31.0-36.0); MEAN CORPUSCULAR VOLUME 86 fL (80-96); MONOCYTES % (AUTO) 13.7 % (2.0-12.0); NEUTROPHILS # (AUTO) 4.5 /CMM (1.8-8.9); NEUTROPHILS % (AUTO) 64.4 % (43.0-81.0); PLATELET COUNT (AUTO) 383 /CMM (150-450); RED BLOOD CELL COUNT(AUTO) 4.77 MIL/uL (4.5-6.0); WHITE BLOOD COUNT (AUTO) 6.9 K/uL (4.3-11.0)
[2019-01-12] MEDS ORDERED: PANTOPRAZOLE 40 MG VIAL IV ONE (09:30)
[2019-01-12] MEDS ORDERED: ONDANSETRON HCL/PF 4 MG/2 ML VIAL IVP ONE (09:30)
[2019-01-12] MEDS ORDERED: IV NS 0.9% 1,000 ML BAG IV ONE (09:30)
[2019-01-12 09:32] LABS: CALCIUM, SERUM 10.9 mg/dL (8.5-10.1); CARBON DIOXIDE 29 mmol/L (21-32); CHLORIDE 94 mmol/L (98-107); CREATININE 1.1 mg/dL (0.6-1.3); GLUCOSE 200 mg/dL (74-106); POTASSIUM 3.7 mmol/L (3.5-5.1); SODIUM SERUM 133 mmol/L (136-145); UREA NITROGEN, BLOOD 13 mg/dL (7-18)
[2019-01-12 09:37] LABS: ALANINE AMINOTRANSFERASE 24 U/L (12-78); ALBUMIN 3.9 g/dL (3.4-5.0); ALKALINE PHOSPHATASE 70 U/L (46-116); ASPARTATE AMINOTRANSFERASE 14 U/L (15-37); BILIRUBIN,DIRECT 0.1 mg/dL (0.0-0.2); BILIRUBIN,TOTAL 0.5 mg/dL (0.2-1.0); LIPASE 31 U/L (73-393); TOTAL PROTEIN, SERUM 9.2 g/dL (6.4-8.2)
--- NOTE | 2019-01-12 10:50 | NUR ---
PO CHALLENGED COMPLETED, PATIENT TOLERATED WATER. IV removed. Catheter intact and site benign. Pressure and 4x4 applied to site. No bleeding noted.Patient discharged to home in stable condition. Written and verbal after care instructions given. Patient verbalizes understanding of instruction.
[2019-01-12 10:51] VITALS: BP 121/90
== END 2019-01-12 10:51 | disposition home or self-care (01) ==
LOC: ER 08:48
DX: K29.70 Gastritis, unspecified, without bleeding (principal); E11.9 Type 2 diabetes mellitus without complications; Z90.89 Acquired absence of other organs; Z79.899 Other long term (current) drug therapy
CPT/HCPCS: 36415; 71045; 80048; 80076; 83690; 84484; 85025; 93005; 96361; 96374; 96375; 99284; C9113; J2405; J7030